=== PATIENT | female | born 1970 | race Caucasian/White ===

== ENCOUNTER → 2016-05-21 | Outpatient (CLI) | payer BC ==
--- NOTE | 2016-05-22 13:24 | MM ---
Reason for exam: follow-up at short interval from prior study. Last mammogram was performed 6 months ago. History: Retro-pectoral saline implants in both breasts, June 2004. Excisional biopsy of the right breast. Took hormonal contraceptives for 20 years. Physical Findings: Nurse did not find any significant physical abnormalities on exam. MG 3D Diag Mammo Imp W/Cad LT CC and MLO view(s) were taken of the left breast. Prior study comparison: November 17, 2015, left breast MG work up mamm w CAD LT. November 15, 2015, bilateral MG screening mammo implant/CAD. The breast tissue is extremely dense which could obscure a lesion on mammography. Finding: There are typically benign 3 grouped/clustered, fine calcifications in the upper quadrant, middle position of the left breast, stable. No significant changes in finding since November 17, 2015 and November 15, 2015. These results were verbally communicated with the patient and result sheet given to the patient on 05/21/16. ASSESSMENT: Benign, BI-RAD 2 RECOMMENDATION: Return to routine screening mammogram schedule for both breasts. Back on schedule.
== END | disposition home or self-care (01) ==
LOC: RADMAMWWP 15:35
PROVIDERS: ATTEND Obstetrics & Gynecology
DX: R92.8 Other abnormal and inconclusive findings on diagnostic imaging of breast (principal); Z98.82 Breast implant status
CPT/HCPCS: G0206; G0279

== ENCOUNTER → 2017-02-12 | Outpatient (CLI) | payer BC ==
--- NOTE | 2017-02-13 10:16 | MM ---
Reason for exam: screening (asymptomatic). Last mammogram was performed 9 months ago. History: Retro-pectoral saline implants in both breasts, June 2004. Excisional biopsy of the right breast. Took hormonal contraceptives for 20 years. Physical Findings: A clinical breast exam by your physician is recommended on an annual basis and results should be correlated with mammographic findings. MG 3D Screen Mammo Imp/Cad Bilateral CC, MLO, and ID view(s) were taken. Prior study comparison: May 21, 2016, left breast MG 3d diag mammo imp w/cad LT. November 17, 2015, left breast MG work up mamm w CAD LT. The breast tissue is extremely dense which could obscure a lesion on mammography. No suspicious abnormality. No significant changes when compared with prior studies. ASSESSMENT: Negative, BI-RAD 1 RECOMMENDATION: Routine screening mammogram of both breasts.
== END | disposition home or self-care (01) ==
LOC: RADMAMWWP 15:41
PROVIDERS: ATTEND Obstetrics & Gynecology
DX: Z12.31 Encounter for screening mammogram for malignant neoplasm of breast (principal); Z98.82 Breast implant status
CPT/HCPCS: 77063; G0202

== ENCOUNTER → 2018-03-17 | Outpatient (CLI) | payer BC ==
--- NOTE | 2018-03-21 09:40 | MM ---
Reason for exam: screening (asymptomatic). Last mammogram was performed 1 year and 1 month ago. History: Retro-pectoral saline implants in both breasts, June 2004. Excisional biopsy of the right breast. Took hormonal contraceptives for 20 years. Physical Findings: A clinical breast exam by your physician is recommended on an annual basis and results should be correlated with mammographic findings. MG 3D Screening Mammo W/Cad Bilateral CC and MLO view(s) were taken. Prior study comparison: February 12, 2017, bilateral MG 3d screen mammo imp/cad. May 21, 2016, left breast MG 3d diag mammo imp w/cad LT. The breast tissue is extremely dense which could obscure a lesion on mammography. A few scattered punctate calcifications on both sides. Global asymmetry posterior medial left breast may be post surgical. 6 month follow up recommended. Patient's prior mammograms were with implants. ASSESSMENT: Probably benign, BI-RAD 3 RECOMMENDATION: Follow-up diagnostic mammogram of the left breast in 6 months.
== END | disposition home or self-care (01) ==
LOC: RADMAMWWP 09:15
PROVIDERS: ATTEND Family Medicine
DX: Z12.31 Encounter for screening mammogram for malignant neoplasm of breast (principal)
CPT/HCPCS: 77063; 77067

== ENCOUNTER → 2018-09-22 | Outpatient (CLI) | payer BC ==
--- NOTE | 2018-09-23 09:17 | MM ---
Reason for exam: screening (asymptomatic). Last mammogram was performed 6 months ago. History: Retro-pectoral saline implants in both breasts, June 2004. Excisional biopsy of the right breast. Took hormonal contraceptives for 20 years. Physical Findings: A clinical breast exam by your physician is recommended on an annual basis and results should be correlated with mammographic findings. MG 3D Screening Mammo W/Cad Bilateral CC and MLO view(s) were taken. Prior study comparison: March 17, 2018, bilateral MG 3d screening mammo w/cad. February 12, 2017, bilateral MG 3d screen mammo imp/cad. The breast tissue is extremely dense which could obscure a lesion on mammography. Benign appearing bilateral calcifications. No significant changes when compared with prior studies. ASSESSMENT: Benign, BI-RAD 2 RECOMMENDATION: Routine screening mammogram of both breasts in 1 year.
== END | disposition home or self-care (01) ==
LOC: RADMAMWWP 12:59
PROVIDERS: ATTEND Obstetrics & Gynecology
DX: Z12.31 Encounter for screening mammogram for malignant neoplasm of breast (principal)
CPT/HCPCS: 77063; 77067

== ENCOUNTER → 2019-10-27 | Outpatient (CLI) | payer BC ==
--- NOTE | 2019-11-02 11:59 | MM ---
Reason for exam: screening (asymptomatic). Last mammogram was performed 1 year and 1 month ago. History: Patient is postmenopausal. Implant Removal of both breasts, 2018. Retro-pectoral saline implants in both breasts, June 2004. Excisional biopsy of the right breast. Took hormonal contraceptives for 20 years. Physical Findings: A clinical breast exam by your physician is recommended on an annual basis and results should be correlated with mammographic findings. MG 3D Screening Mammo W/Cad Bilateral CC and MLO view(s) were taken. Prior study comparison: September 22, 2018, bilateral MG 3d screening mammo w/cad. March 17, 2018, bilateral MG 3d screening mammo w/cad. The breast tissue is extremely dense which could obscure a lesion on mammography. There are benign appearing round calcifications bilaterally. There is no discrete abnormality. ASSESSMENT: Benign, BI-RAD 2 RECOMMENDATION: Routine screening mammogram of both breasts in 1 year.
== END | disposition home or self-care (01) ==
LOC: RADMAMWWP 08:21
PROVIDERS: ATTEND Obstetrics & Gynecology
DX: Z12.31 Encounter for screening mammogram for malignant neoplasm of breast (principal)
CPT/HCPCS: 77063; 77067

== ENCOUNTER 2020-03-25 10:53 | Emergency (ER) | payer BC ==
[2020-03-25 11:02] VITALS: BP 134/74; PULSE 71; RESP 18; TEMP 99.1
--- NOTE | 2020-03-25 11:15 | ED ---
Head Injury HPI - General Source: patient Mode of arrival: ambulatory Limitations: no limitations <Irina Houston - Last Filed: 03/25/20 14:00> <Jeanette Tapia - Last Filed: 03/26/20 12:20> - General Chief complaint: Head Injury Stated complaint: facial laceration Time Seen by Provider: 03/25/20 11:03 - History of Present Illness Initial comments: 49yo female presenting for cc of fall roughly 12 hours ago. pt states she fell late yesterday evening she states she struck the right side of her forehead. denies LOC or use of anticoagulation therapy. denies headaches, nausea, vomiting, visual changes, injury to the temporal region, denies eye pain, or pain with eye movement. pt states she came today to the ER due to the laceration she sustained after falling would not stop bleeding/leaking. pt states she is unsure of her last tetanus. Denies neck pain, back pain, extremitiy pain. Pt denies additional complaints or areas of injury. (Irina Hosuton) - Related Data Previous Rx's Medication Instructions Recorded Cephalexin [Keflex] 500 mg PO Q6HR 7 Days #28 cap 03/25/20 Allergies/Adverse reactions: Allergies Allergy/AdvReac Type Severity Reaction Status Date / Time codeine Allergy Itching Verified 03/25/20 11:02 Review of Systems ROS Other: All systems not noted in ROS Statement are negative. <Irina Houston - Last Filed: 03/25/20 14:00> ROS Other: All systems not noted in ROS Statement are negative. <Jeanette Tapia - Last Filed: 03/26/20 12:20> ROS Statement: Those systems with pertinent positive or pertinent negative responses have been documented in the HPI. Past Medical History Past Medical History: Asthma History of Any Multi-Drug Resistant Organisms: None Reported Past Surgical History: No Surgical Hx Reported Past Psychological History: No Psychological Hx Reported Smoking Status: Never smoker Past Alcohol Use History: Occasional Past Drug Use History: None Reported <Irina Houston - Last Filed: 03/25/20 14:00> General Exam Limitations: no limitations <Irina Houston - Last Filed: 03/25/20 14:00> - General Exam Comments Initial Comments: General: The patient is awake and alert, in no distress, and does not appear acutely ill. Eye: +3 mm pupils are equal, round and reactive to light, extra-ocular movements are intact. No pain with extraocular movements orbits appear intact to palpation No nystagmus. There is normal conjunctiva bilaterally. No signs of icterus. Ears, nose, mouth and throat: There are moist mucous membranes and no oral lesions. No raccoon or Rudolph sign Neck: The neck is supple, there is no tenderness or JVD. No midline tenderness to palpation of the cervical spine Cardiovascular: There is a regular rate and rhythm. No murmur, rub or gallop is appreciated. Respiratory: Lungs are clear to auscultation, respirations are non-labored, breath sounds are equal. No wheezes, stridor, rales, or rhonchi. Musculoskeletal: Normal ROM, no tenderness. Strength 5/5. Sensation intact. Pulses equal bilaterally 2+. Neurological: A&O x 3. CN II-XII intact, There are no obvious motor or sensory deficits. Coordination appears grossly intact. Speech is normal. Skin: Skin is warm and dry and no rashes. 1.5cm laceration to the right forehead. about 2cm above mid/lateral eye brow. no eye brow involvement. bleeding currently controlled. wound edges appear vitalized. hematoma surrounding the laceration, no crepits. to pain to palpation of hematoma overlying the temporal regions. Psychiatric: Cooperative, appropriate mood & affect, normal judgment. (Irina Houston) Course Vital Signs 03/25/20 10:59 Temperature 99.1 F Pulse Rate 71 Respiratory 18 Rate Blood Pressure 134/74 O2 Sat by Pulse 100 Oximetry Procedures - Laceration Laceration #1 Consent Obtained: verbal consent Indication: laceration Site: face (forehead, right side) Size (cm): 0 (1.5cm actual size) Description: linear Depth: simple, single layer Anesthetic Used: lidocaine 1% Anesthesia Technique: local infiltration Amount (mls): 1 Pre-repair: wound explored, irrigated extensively, deep structures intact Type of Sutures: nylon Size of Sutures: 6-0 Number of Sutures: 4 Technique: simple, interrupted Patient Tolerated Procedure: well, no complications <Irina Houston - Last Filed: 03/25/20 14:00> Medical Decision Making <Irina Houston - Last Filed: 03/25/20 14:00> <Jeanette Tapia - Last Filed: 03/26/20 12:20> - Medical Decision Making Recommended CT. pt refused. pt was able to recite back in own words the risks associated with no getting a CT such as intracranial abnormalities/bleeding. pt states she will not do any imaging and only came to the ER for repair of laceration. no clinical findings of skull fracture. no racoon no rudolph sign no crepitus to palpation Tdap updated. laceration repaired. pt tolerated well. irrigated well prior to close and edges appeared vitalized. pt has no focal neurological deficits. at this time pt is aware of return parameters, wound care, importance of timely suture removal and ready for discharge with PCP f/u. Discussed jean pierre wtih Dr. Tapia who is agreeable to care plan and discharge. (Irina Houston) I was available for consultation in the emergency department. The history and physical exam were done by the midlevel provider. I was consulted for this patients care. I reviewed the case with the midlevel provider and based on their presentation of the patient, I agree with the assessment, medical decision making and plan of care as documented. Chart was dictated using [employer] dictation software. Attempts were made to correct any dictation errors however some typographical errors may persist. Patient was seen during a national state of emergency due to the Covid-19 pa ndemic. (Jeanette Tapia) Disposition Is patient prescribed a controlled substance at d/c from ED?: No <Irina Houston - Last Filed: 03/25/20 14:00> <Jeanette Tapia - Last Filed: 03/26/20 12:20> Clinical Impression: Facial laceration, Fall Disposition: HOME SELF-CARE Condition: Good Instructions (If sedation given, give patient instructions): Facial Laceration (ED) Additional Instructions: Please use medication as discussed. Please follow-up with family doctor in the next 2 days, recommend suture removal in 5 days, come to ER for removal or primary care provider. Please return to emergency room if the symptoms increase or worsen or for any other concerns. Prescriptions: Cephalexin [Keflex] 500 mg PO Q6HR 7 Days #28 cap Referrals: Danial Miranda MD [Primary Care Provider] - 1-2 days
[2020-03-25] MEDS: LIDOCAINE 1% INJ 10MG/ML (20 ML MDV) SQ ONE (11:17)
[2020-03-25] MEDS: DIPH,PERTUS(ACELL)TETVAC-LF 0.5 ML VIAL IM ONE (11:18)
== END 2020-03-25 11:46 | disposition home or self-care (01) ==
LOC: EC 10:53
DX: S01.81XA Laceration without foreign body of other part of head, initial encounter (principal); Z23 Encounter for immunization; Z88.5 Allergy status to narcotic agent; W01.10XA Fall on same level from slipping, tripping and stumbling with subsequent striking against unspecified object, initial encounter
CPT/HCPCS: 90715; 99283; 90471; 12011; J2001

== ENCOUNTER 2020-07-08 08:09 | Day surgery (SDC) | payer BC ==
[2020-07-05 15:21] VITALS: BMI 19.5
[~2020-07-08 08:09] MED LIST: LACTATED RINGERS 1,000 ML IV SCH; LIDOCAINE 1% (10MG/ML) FOR IV START INTRADERMA PRN
[2020-07-08 08:33] VITALS: RESP 16; TEMP 98.3
[2020-07-08] MEDS ORDERED: PROPOFOL 10 MG/ML 20 ML VIAL IV ONE (09:03)
--- NOTE | 2020-07-08 09:21 | P.PCN ---
Date of Procedure: 07/08/20 Procedure(s) Performed: BRIEF HISTORY: Patient is a 50-year-old pleasant female scheduled for an elective colonoscopy as a part of screening for colorectal neoplasia. PROCEDURE PERFORMED: Colonoscopy. PREOPERATIVE DIAGNOSIS: Screening for colon cancer. IV sedation per Anesthesia. PROCEDURE: After informed consent was obtained, the patient, was brought into the endoscopy unit. IV sedation was administered by Anesthesia under continuous monitoring. Digital rectal examination was normal. Initially the Olympus CF-160 flexible video colonoscope was then inserted in the rectum, gradually advanced into the cecum without any difficulty. Careful examination was performed as the scope was gradually being withdrawn. Ileocecal valve and the appendiceal orifice were visualized and appeared normal. Prep was excellent. Mucosa of the cecum, ascending colon, transverse colon, descending colon, sigmoid colon, and rectum appeared normal. Retroflexion was performed in the rectum and no lesions were seen. The patient tolerated the procedure well. IMPRESSION: Normal-appearing colon from rectum to cecum with no evidence of colorectal neoplasia. RECOMMENDATIONS: Findings of this examination were discussed with the patient surveillance of family. He was advised to have a repeat screening colonoscopy in 10 years..
[2020-07-08 09:46] VITALS: BP 112/65; PULSE 68
== END 2020-07-08 09:58 | disposition home or self-care (01) ==
LOC: ORWHC2ENDO 08:09
PROVIDERS: ATTEND Internal Medicine Gastroenterology
DX: Z12.11 Encounter for screening for malignant neoplasm of colon (principal); J45.909 Unspecified asthma, uncomplicated; Z88.5 Allergy status to narcotic agent
CPT/HCPCS: J2704; G0121; 45378

== ENCOUNTER 2020-07-21 13:34 | Emergency (ER) | payer BC ==
[2020-07-21 13:39] VITALS: BP 119/80; PULSE 63; RESP 16; TEMP 98.9
--- NOTE | 2020-07-21 14:00 | ED ---
Animal Bite HPI - General Chief Complaint: Animal Bite Stated Complaint: [facility]-dog bite Time Seen by Provider: 07/21/20 13:43 Source: patient Mode of arrival: ambulatory Limitations: no limitations - History of Present Illness Initial Comments: 50-year-old female presents to emergency department with chief complaint of an animal bite. Patient reports this occurred about 4 days ago on her left eye. Patient reports she was dropping off a package at her house when a dog bit her on the leg. Patient reports the wound has been healing well and denies any discharge from region. She does report bruising around the bite site. She denies any limited range of motion in the left leg. She denies any fevers or chills. States the dog has been vaccinated. Her tetanus is also up-to-date. - Related Data Home Medications Medication Instructions Recorded Confirmed Naproxen 500 mg PO DAILY 07/05/20 07/08/20 Previous Rx's Medication Instructions Recorded Amoxicillin/Potassium Clav 1 tab PO Q12HR #14 tab 07/21/20 [Augmentin 875-125 Tablet] Allergies Allergy/AdvReac Type Severity Reaction Status Date / Time codeine Allergy Itching Verified 07/21/20 13:34 Review of Systems ROS Statement: Those systems with pertinent positive or pertinent negative responses have been documented in the HPI. ROS Other: All systems not noted in ROS Statement are negative. Past Medical History Past Medical History: Asthma History of Any Multi-Drug Resistant Organisms: None Reported Past Surgical History: Breast Surgery, Orthopedic Surgery, Uterine Ablation Additional Past Surgical History / Comment(s): BREAST IMPLANTS X 2 THEN REMOVED. RT WRIST SX. LUMPECTOMY RT SIDE? Past Anesthesia/Blood Transfusion Reactions: No Reported Reaction Past Psychological History: No Psychological Hx Reported Smoking Status: Never smoker - Past Family History Mother Family Medical History: No Reported History General Exam Limitations: no limitations General appearance: alert, in no apparent distress Head exam: Present: atraumatic, normocephalic, normal inspection Eye exam: Present: normal appearance, PERRL, EOMI Pupils: Present: normal accommodation ENT exam: Present: normal exam, normal oropharynx, mucous membranes moist, TM's normal bilaterally, normal external ear exam Neck exam: Present: normal inspection, full ROM. Absent: tenderness Respiratory exam: Present: normal lung sounds bilaterally. Absent: respiratory distress Cardiovascular Exam: Present: regular rate, normal rhythm, normal heart sounds. Absent: systolic murmur Extremities exam: Present: full ROM, tenderness (Mild tenderness at the bite site), normal capillary refill. Absent: normal inspection (A puncture wound noted on the left proximal thigh with underlying ecchymosis. No sign of overlying cellulitic skin changes at this time.), pedal edema, joint swelling, calf tenderness Back exam: Present: normal inspection, full ROM. Absent: tenderness, CVA tenderness (R), CVA tenderness (L) Neurological exam: Present: alert, oriented X3 Psychiatric exam: Present: normal affect, normal mood Skin exam: Present: warm, dry, intact, normal color Course Vital Signs 07/21/20 13:34 Temperature 98.9 F Pulse Rate 63 Respiratory 16 Rate Blood Pressure 119/80 O2 Sat by Pulse 98 Oximetry Medical Decision Making - Medical Decision Making 50-year-old female presents to the emergency department the chief complaint of An animal bite. On physical examination, there is a healing wound with no signs of infection at this time. Her tetanus is up-to-date. The dog is also vaccinated. I will treat with Augmentin. Strict return parameters were thoroughly discussed the patient is worsening and agreeable. Case discussed with Disposition Clinical Impression: Bite by animal Disposition: HOME SELF-CARE Condition: Stable Instructions (If sedation given, give patient instructions): Animal Bite (ED) Additional Instructions: Please return to the Emergency Department if symptoms worsen or any other concerns. Prescriptions: Amoxicillin/Potassium Clav [Augmentin 875-125 Tablet] 1 tab PO Q12HR #20 tab Is patient prescribed a controlled substance at d/c from ED?: No Referrals: Danial Miranda MD [Primary Care Provider] - 1-2 days Time of Disposition: 14:00
== END 2020-07-21 14:44 | disposition home or self-care (01) ==
LOC: EC 13:34
DX: S71.152D Open bite, left thigh, subsequent encounter (principal); J45.909 Unspecified asthma, uncomplicated; W54.0XXD Bitten by dog, subsequent encounter
CPT/HCPCS: 99282

== ENCOUNTER → 2020-11-09 | Outpatient (CLI) | payer BC ==
--- NOTE | 2020-11-11 12:44 | MM ---
Reason for exam: screening (asymptomatic). Last mammogram was performed 1 year ago. History: Patient is postmenopausal. Implant Removal of both breasts, 2018. Retro-pectoral saline implants in both breasts, June 2004. Excisional biopsy of the right breast. Took hormonal contraceptives for 20 years. Physical Findings: A clinical breast exam by your physician is recommended on an annual basis and results should be correlated with mammographic findings. MG 3D Screening Mammo W/Cad Bilateral CC and MLO view(s) were taken. Prior study comparison: October 27, 2019, bilateral MG 3d screening mammo w/cad. September 22, 2018, bilateral MG 3d screening mammo w/cad. March 17, 2018, bilateral MG 3d screening mammo w/cad. The breast tissue is extremely dense which could obscure a lesion on mammography. Medial posterior right asymmetric density on the CC view is more defined. Further evaluation recommended. ASSESSMENT: Incomplete: need additional imaging evaluation, BI-RAD 0 RECOMMENDATION: Special view mammogram of the right breast. (3D) If lesion persists on supplemental views, image directed ultrasound is recommended. [facility] will attempt to contact patient to return for supplemental views and ultrasound if indicated.
== END | disposition home or self-care (01) ==
LOC: RADMAMWWP 07:59
PROVIDERS: ATTEND Obstetrics & Gynecology
DX: Z12.31 Encounter for screening mammogram for malignant neoplasm of breast (principal); Z78.0 Asymptomatic menopausal state
CPT/HCPCS: 77063; 77067

== ENCOUNTER → 2020-11-16 | Outpatient (CLI) | payer BC ==
--- NOTE | 2020-11-17 09:57 | MM ---
Reason for exam: additional evaluation requested from abnormal screening. Last mammogram was performed less than 1 month ago. History: Patient is postmenopausal. Implant Removal of both breasts, 2017. Retro-pectoral saline implants in both breasts, June 2004. Excisional biopsy of the right breast. Took hormonal contraceptives for 20 years. Physical Findings: Nurse did not find any significant physical abnormalities on exam. MG 3D Work Up W/Cad RT Spot compression CC, LM, CCRM, and CCRL view(s) were taken of the right breast. Prior study comparison: November 09, 2020, bilateral MG 3d screening mammo w/cad. October 27, 2019, bilateral MG 3d screening mammo w/cad. The breast tissue is heterogeneously dense. This may lower the sensitivity of mammography. There is no discrete abnormality including area of concern. These results were verbally communicated with the patient and result sheet given to the patient on 11/16/20. ASSESSMENT: Negative, BI-RAD 1 RECOMMENDATION: Return to routine screening mammogram schedule for both breasts.
== END | disposition home or self-care (01) ==
LOC: RADMAMWWP 14:55
PROVIDERS: ATTEND Obstetrics & Gynecology
DX: R92.2 Inconclusive mammogram (principal); Z78.0 Asymptomatic menopausal state
CPT/HCPCS: 77061; 77065

== ENCOUNTER → 2021-06-09 | Outpatient (CLI) | payer BC ==
--- NOTE | 2021-06-09 17:30 | CT ---
EXAMINATION TYPE: CT angio chest DATE OF EXAM: 06/09/2021 COMPARISON: None HISTORY: SOB [address] DLP: 352 mGycm Automated exposure control for dose reduction was used. CONTRAST: Performed with IV Contrast, patient injected with 64cc mL of Isovue 370. There are Three-D postprocessed images. Images obtained from the thoracic inlet to the diaphragm with out IV contrast. There is some mild pleural thickening and scarring at the lung apices. The remaining lung story are clear. No pleural effusion. Heart size is normal. There is no pericardial effusion. There are no hilar masses. There is no mediastinal adenopathy. Thoracic aorta is intact. There is no aneurysm or dissection. The ascending aorta measures 2.8 cm. Thoracic spine is intact. There is no compression fracture. Sternum is intact. There is no evidence of filling defect in the pulmonary arteries. IMPRESSION: Negative exam. No evidence of pulmonary embolism. Mild pleural and pulmonary scarring at the lung api kwame. No suspicious pulmonary mass.
== END | disposition home or self-care (01) ==
LOC: RADCTMAIN 16:40
PROVIDERS: ATTEND Internal Medicine Critical Care Medicine
DX: U09.9 Post COVID-19 condition, unspecified (principal); R91.8 Other nonspecific abnormal finding of lung field
CPT/HCPCS: 71275; Q9967

== ENCOUNTER → 2022-01-16 | Outpatient (CLI) | payer BC ==
--- NOTE | 2022-01-17 10:23 | MM ---
Reason for Exam: Screening (asymptomatic). Last mammogram was performed 1 year(s) and 2 month(s) ago. Patient History: Menarche at age 11. First Full-Term at age 26. Postmenopausal. Patient has history of breast feeding. Patient used Hormonal Contraceptives for 20 years. Excisional Biopsy on the Right side. 2018, Bilateral Implant Removal. 06/2004, Bilateral Implants. Risk Values: Sultana 5 year model risk: 1.4%. NCI Lifetime model risk: 11.2%. Prior Study Comparison: 10/27/2019 Bilateral Screening Mammogram, [facility]. 11/09/2020 Bilateral Screening Mammogram, [facility]. 11/16/2020 Right Diagnostic Mammogram, [facility]. Tissue Density: The breast tissue is extremely dense which could obscure a lesion on mammography. Findings: Analyzed By CAD. Scattered and loosely grouped small benign-appearing round calculus. Bilateral breasts are redemonstrated. There is no suspicious group of microcalcifications or new suspicious distortion in either breast. Overall Assessment: Benign, BI-RAD 2 Management: Screening Mammogram of both breasts in 1 year. Some advise bilateral breast ultrasound surveillance in patients with background dense tissue. A clinical breast exam by your physician is recommended on an annual basis and results should be correlated with mammographic findings. Electronically signed and approved by: Moises Matamoros M.D.
== END | disposition home or self-care (01) ==
LOC: RADMAMWWP 09:25
PROVIDERS: ATTEND Obstetrics & Gynecology
DX: Z12.31 Encounter for screening mammogram for malignant neoplasm of breast (principal)
CPT/HCPCS: 77063; 77067

== ENCOUNTER → 2023-05-07 | Outpatient (CLI) | payer BC ==
--- NOTE | 2023-05-08 13:24 | MM ---
Reason for Exam: Screening (asymptomatic). Last mammogram was performed 1 year(s) and 4 month(s) ago. Patient History: Menarche at age 11. First Full-Term at age 26. Postmenopausal. Patient has history of breast feeding. Patient used Hormonal Contraceptives for 20 years. Excisional Biopsy on the Right side. 2018, Bilateral Implant Removal. 06/2004, Bilateral Implants. Risk Values: Sultana 5 year model risk: 1.5%. NCI Lifetime model risk: 10.8%. Prior Study Comparison: 11/09/2020 Bilateral Screening Mammogram, [facility]. 11/16/2020 Right Diagnostic Mammogram, [facility]. 01/16/2022 Bilateral MG 3D screening mammo w/cad, [facility]. Tissue Density: The breast tissue is extremely dense which could obscure a lesion on mammography. Findings: Analyzed By CAD. There is no suspicious group of microcalcifications or new suspicious mass. Overall Assessment: Negative, BI-RAD 1 Management: Screening Mammogram of both breasts in [address] [facility] will attempt to contact patient to return for supplemental views and ultrasound if indicated. Patient should continue monthly self-breast exams. A clinical breast exam by your physician is recommended on an annual basis. This exam should not preclude additional follow-up of suspicious palpable abnormalities. Note on Sultana scores and lifetime risk: 1. A Sultana score greater than 3% is considered moderate risk. If this is the case, consider specialist referral to assess eligibility for a risk reducing agent. 2. If overall lifetime risk for the development of breast cancer is 20% or higher, the patient may qualify for future screening with alternating mammogram and breast MRI. Electronically signed and approved by: Yuri Pope DO
== END | disposition home or self-care (01) ==
LOC: RADMAMWWP 16:07
PROVIDERS: ATTEND Obstetrics & Gynecology
DX: Z12.31 Encounter for screening mammogram for malignant neoplasm of breast (principal); Z78.0 Asymptomatic menopausal state; Z98.82 Breast implant status
CPT/HCPCS: 77063; 77067

== ENCOUNTER → 2023-07-31 | Outpatient (CLI) | payer BC ==
--- NOTE | 2023-07-31 09:08 | US ---
EXAMINATION TYPE: US abdomen complete DATE OF EXAM: 07/31/2023 COMPARISON: NONE CLINICAL INDICATION: Female, 53 years old with history of R10.11 RIGHT UPPER QUADRANT PAIN; RUQ pain that has since stopped TECHNIQUE: Multiple sonographic images of the abdomen are obtained. FINDINGS: EXAM MEASUREMENTS: Liver Length: 17.5 cm Gallbladder Wall: 0.2 cm CBD: 0.6 cm Spleen: 10.7 cm Right Kidney: 10.4 x 4.9 x 3.8 cm Left Kidney: 11.1 x 3.6 x 4.2 cm Pancreas: wnl Liver: wnl Gallbladder: wnl Evidence for sonographic Sumner's sign: no CBD: wnl Spleen: wnl Right Kidney: wnl Left Kidney: wnl Upper IVC: wnl Abd Aorta: wnl The liver is homogenous. The intrahepatic portion of the IVC and proximal abdominal aorta are within normal limits. There is no evidence of cholelithiasis. Common bile duct is unremarkable. The visu alized portions of the pancreas are homogenous. The spleen is unremarkable. Kidneys are symmetric a nd free of hydronephrosis. No renal lesions are seen. IMPRESSION: Unremarkable abdominal ultrasound.
== END | disposition home or self-care (01) ==
LOC: RADUSWWP 07:57
PROVIDERS: ATTEND Family Medicine
DX: R10.11 Right upper quadrant pain (principal)
CPT/HCPCS: 76700

== ENCOUNTER → 2024-06-29 | Outpatient (CLI) | payer BC ==
--- NOTE | 2024-06-29 16:58 | MM ---
Reason for Exam: Screening (asymptomatic). Last mammogram was performed 1 year(s) and 2 month(s) ago. Patient History: Menarche at age 11. First Full-Term at age 26. Postmenopausal. Patient has history of breast feeding. Patient used Hormonal Contraceptives for 20 years. Excisional Biopsy on the Right side. 2018, Bilateral Implant Removal. 06/2004, Bilateral Implants. Risk Values: Sultana 5 year model risk: 1.6%. NCI Lifetime model risk: 10.7%. Prior Study Comparison: 11/16/2020 Right Diagnostic Mammogram, [facility]. 01/16/2022 Bilateral MG 3D screening mammo w/cad, [facility]. 05/07/2023 Bilateral MG 3D screening mammo w/cad, [facility]. Tissue Density: The breasts are extremely dense, which lowers the sensitivity of mammography. Findings: Analyzed By CAD. Chronic nodularity central right breast which becomes apparent on 3-D images. There is no suspicious group of microcalcifications or new suspicious mass in either breast. Overall Assessment: Benign, BI-RAD 2 Management: Screening Mammogram of both breasts in 1 year. Given the patient's extremely dense breast tissue, consider supplementary screening with breast ultrasound. Patient should continue monthly self-breast exams. A clinical breast exam by your physician is recommended on an annual basis. This exam should not preclude additional follow-up of suspicious palpable abnormalities. Note on Sultana scores and lifetime risk: 1. A Sultana score greater than 3% is considered moderate risk. If this is the case, consider specialist referral to assess eligibility for a risk reducing agent. 2. If overall lifetime risk for the development of breast cancer is 20% or higher, the patient may qualify for future screening with alternating mammogram and breast MRI. [facility], , 06/29/2024 4:55 PM. Electronically signed and approved by: Kelsey Rodgers M.D. Radiologist
== END | disposition home or self-care (01) ==
LOC: RADMAMWWP 15:50
PROVIDERS: ATTEND Obstetrics & Gynecology
DX: Z12.31 Encounter for screening mammogram for malignant neoplasm of breast (principal); R92.343 Mammographic extreme density, bilateral breasts; Z78.0 Asymptomatic menopausal state; Z92.0 Personal history of contraception; Z98.82 Breast implant status
CPT/HCPCS: 77063; 77067